=== PATIENT | male | born 1940 | race Caucasian/White ===

== ENCOUNTER 2022-09-05 12:13 | Outpatient (CLI) | payer MEDICARE, BC, SELFPAY | END 2022-09-05 12:14 | disposition home or self-care (01) | LOC: NFLDUCREF 09-08 10:07 | PROVIDERS: PCP Family Medicine; Visit Provider Registered Nurse | DX: R68.83 Chills (without fever) (principal); R35.0 Frequency of micturition; N39.0 Urinary tract infection, site not specified | CPT/HCPCS: 87086; 87186 ==

== ENCOUNTER 2023-05-15 13:50 | Outpatient (CLI) | payer MEDICARE, BC, SELFPAY | END 2023-05-15 13:51 | disposition home or self-care (01) | LOC: RAD 13:52 | PROVIDERS: PCP Family Medicine; Visit Provider Family Medicine | DX: I05.0 Rheumatic mitral stenosis (principal) | CPT/HCPCS: 93306 ==

== ENCOUNTER 2024-03-25 06:36 | Outpatient (CLI) | payer MEDICARE, BC, SELFPAY ==
--- NOTE | 2024-03-25 08:04 | W.ANESCHARGE ---
Anesthesia Charges Start Date/Time Anesthesia Start Date: 03/25/24 Anesthesia Start Time: 07:25 Stop Date/Time Anesthesia Stop Date: 03/25/24 Anesthesia Stop Time: 08:02
--- NOTE | 2024-03-25 08:52 | W.ANESCHARGE ---
Anesthesia Charges Start Date/Time Anesthesia Start Date: 03/25/24 Anesthesia Start Time: 07:25 Stop Date/Time Anesthesia Stop Date: 03/25/24 Anesthesia Stop Time: 08:02 Summary Extremes of Age - Over 70 or under 1: MDA
== END 2024-03-25 06:37 | disposition home or self-care (01) ==
LOC: OP CLINIC 06:37
PROVIDERS: PCP Family Medicine; Visit Provider Internal Medicine Gastroenterology
DX: Z12.11 Encounter for screening for malignant neoplasm of colon (principal); K57.30 Diverticulosis of large intestine without perforation or abscess without bleeding; Q43.8 Other specified congenital malformations of intestine; Z86.010 Personal history of colon polyps
CPT/HCPCS: 00812; 45378; 99100; J2704

== ENCOUNTER 2024-04-25 13:00 | Outpatient (RCR) | payer MEDICARE, BC, SELFPAY | END 2024-07-24 15:40 | disposition home or self-care (01) | PROVIDERS: PCP Family Medicine; Visit Provider Podiatrist | DX: R53.1 Weakness (principal); Z51.89 Encounter for other specified aftercare | CPT/HCPCS: 97110; 97161 ==

== ENCOUNTER 2024-05-13 08:53 | Emergency (ER) | payer MEDICARE, BC, SELFPAY ==
[2024-05-13 08:59] VITALS: BP 147/92; PULSE 64; RESP 18; TEMP 36.2; O2SAT 93; BMI 35.8
--- NOTE | 2024-05-13 09:12 | CRLHL7_ITS ---
For Patients: As a result of the Century Cures Act, medical imaging exams and procedure reports are released immediately into your electronic medical record. You may view this report before your referring provider. If you have questions, please contact your health care provider. INDICATION: Pain in front of chest. Trauma. COMPARISON: None TECHNIQUE: A single view of the chest was obtained as well as additional views of both rib cages. FINDINGS: Heart size normal. Tortuous aorta. Moderate to large hiatal hernia. Evidence of remote granulomatous infection. Linear and reticular bibasilar opacities are probably due to atelectasis and scarring. No pleural effusion or pneumothorax. I see no rib fracture. Due to demineralization, I would expect rib fractures, especially anterior rib fractures to be in apparent unless they were significantly displaced. Also note that the sternum is not studied on this exam. IMPRESSION: 1. No evidence of active pulmonary disease. Bibasilar atelectasis or scarring. No pleural effusion or pneumothorax. 2. No definite displaced rib fracture. Please review the comment regarding the ribs and the sternum. Dictated by Lucio Peters MD @ 05/13/2024 9:51:07 AM (Electronically Signed)
--- NOTE | 2024-05-13 09:12 | ED.FALL ---
HPI - Fall General Chief Complaint: Fall/Minor Trauma Stated Complaint: Fell on 05/10, sore all over Time Seen by Provider: 05/13/24 09:06 History of Present Illness HPI Narrative: This 84-year-old male comes in with lower anterior rib pain. He states that he fell 3 days ago and injured this area. He was walking and tripped over a speed bump on the road and fell forward. He did hit his face but did not have loss of consciousness. His main impact was on his lower anterior ribs. He states that he had rather distinct pain at the time and yet did not come in for evaluation. He reports that the pain is worse with a deep breath and when firing his abdominal musculature. He feels pain across the lower anterior chest. He states that his pain is improved over these past few days. He does take a baby aspirin. He does not report any headache or neurologic deficit. He mention to a neighbor who is a nurse about his symptoms and she states that he should have come in for evaluation. Related Data Home Medications ?Medication ?Instructions ?Recorded ?Confirmed amlodipine 10 mg tablet 10 mg PO QDAY 09/05/22 05/13/24 amoxicillin 500 mg capsule 2,000 mg PO ONCE PRN 09/05/22 09/05/22 brimonidine 0.2 % eye drops ml ophthalmic (eye) 09/05/22 09/05/22 famotidine 20 mg tablet 20 mg PO QDAY 09/05/22 05/13/24 hydrochlorothiazide 25 mg tablet 25 mg PO QDAY 09/05/22 05/13/24 simvastatin 20 mg tablet 20 mg PO QDAY 09/05/22 05/13/24 umeclidinium 62.5 mcg/actuation 1 inh inhalation Q24H 09/05/22 05/13/24 blister powder for inhalation (Incruse Ellipta) venlafaxine 37.5 mg See Rx Instructions PO .COMPLEX 09/05/22 05/13/24 capsule,extended release 24 hr losartan 50 mg tablet 50 mg PO DAILY 05/13/24 05/13/24 venlafaxine 75 mg capsule,extended 75 mg PO DAILY 05/13/24 05/13/24 release 24 hr Allergies Allergy/AdvReac Type Severity Reaction Status Date / Time atenolol Allergy bradycardia Verified 05/13/24 09:04 buspirone [From BuSpar] Allergy Diarrhea Verified 05/13/24 09:04 citalopram Allergy Diarrhea Verified 05/13/24 09:04 doxazosin Allergy Dizziness Verified 05/13/24 09:04 rosuvastatin Allergy myalgia Verified 05/13/24 09:04 sertraline Allergy Diarrhea Verified 05/13/24 09:04 simvastatin Allergy myalgia Verified 05/13/24 09:04 iodine contrast dye Allergy Severe swelling Uncoded 09/05/22 12:09 of throat Diatrizoate Allergy Anaphylaxis Uncoded 03/25/24 07:43 Review of Systems Status of ROS: Reports: 10 or more systems reviewed and unremarkable except as noted in History and below Narrative: Constitutional: No fevers, no weight gain or loss. Eyes: No discharge. No vision changes. HENT: No congestion, no sore throat, no ear pain. Cardiovascular: No palpitations. Respiratory: No shortness of breath, no wheezes, no cough. Gastrointestinal: No abdominal pain, no vomiting, no diarrhea. Genitourinary: No dysuria, no hematuria. Musculoskeletal: Normal range of motion. Skin: No rashes, no pruritis. Neurological: No dizziness, weakness, sensory change, speech change. Endo/Heme/Allergies: No bruising or bleeding. No polydipsia. Pysch: no suicidality, no anxiety, no insomnia. All other systems reviewed and are negative. PFSH PFSH Social History Smoking Status: Former smoker Do you use any of these nicotine containing products: None Second hand tobacco smoke exposure: No How often do you have a drink containing alcohol: 2-3 times a week How many standard drinks containing alcohol do you have on a typical day: 1 or 2 How often do you have six or more drinks on one occasion: Never AUDIT-C Alcohol total score: 3 Non-prescribed substance use: denies use Exam Narrative: Exam Narrative: Constitutional: Well-developed, well-nourished, no acute distress. HEENT: Normocephalic, atraumatic. Neck: Normal range of motion. Nontender. Supple. Heart: Regular. No murmurs. Normal rate. Intact distal pulses. Lungs: Clear to auscultation. No wheezes, rhonchi, or rales. Chest wall: Patient has distinct pain that is reproduced when palpating along the anterior lower ribs. Abdomen: Normal bowel sounds. Nontender. No rebound tenderness. Genitalia: Deferred. Back: No midline tenderness. Normal range of motion. Extremities: Normal range of motion. No injury. Skin: Intact. No rash. Warm. No erythema or pallor. Neurologic: No altered sensation. No weakness. Alert and oriented. Psychiatric: No suicidality. No anxiety or depression. No insomnia. Nursing notes and vitals signs are reviewed. Const: Vital Signs, click to edit/add: Vital Signs - 24 hr 05/13/24 08:59 Temperature 97.2 F L Pulse Rate [Right Pulse Oximeter] 64 Respiratory Rate 18 Blood Pressure [Ri ght Upper Arm] 147/92 H Pulse Oximetry 93 Oxygen Delivery Me thod Room Air Course Vital Signs Vital signs: Initial Vital Signs Temperature 97.2 F L 05/13/24 08:59 Temperature Source Temporal Artery Scan 05/13/24 08:59 Pulse Rate 64 05/13/24 08:59 Pulse Rhythm Regular 05/13/24 08:59 Pulse Strength 3+ Normal 05/13/24 08:59 Respiratory Rate 18 05/13/24 08:59 Blood Pressure 147/92 H 05/13/24 08:59 Blood Pressure Mean 110 H 05/13/24 08:59 Blood Pressure Position Sitting 05/13/24 08:59 Pulse Oximetry 93 05/13/24 08:59 Oxygen Delivery Method Room Air 05/13/24 08:59 Vital Signs Temperature 97.2 F L 05/13/24 08:59 Pulse Rate 64 05/13/24 08:59 Respiratory Rate 18 05/13/24 08:59 Blood Pressure 147/92 H 05/13/24 08:59 Pulse Oximetry 93 05/13/24 08:59 Oxygen Delivery Method Room Air 05/13/24 08:59 Temperature 97.2 F L 05/13/24 08:59 Pulse Rate 64 05/13/24 08:59 Respiratory Rate 18 05/13/24 08:59 Blood Pressure 147/92 H 05/13/24 08:59 Pulse Oximetry 93 05/13/24 08:59 Oxygen Delivery Method Room Air 05/13/24 08:59 MDM - Fall MDM Narrative Medical decision making narrative: This patient comes in for evaluation of injuries from a fall as described above. X-ray images are obtained which show no evidence of pneumothorax or rib fracture. The patient is reassured with these results. He states that he feels okay using [id number] medicines for pain relief as needed. Discharge Plan Discharge Clinical Impression: Contusion of ribs Patient Disposition: Home, Self-Care Condition: Stable Additional Instructions: Use [id number] medicines as needed and directed. Increase activity as tolerated. Follow up with MD or return if worsening. Prescriptions: No Action amlodipine 10 mg tablet 10 mg PO QDAY famotidine 20 mg tablet 20 mg PO QDAY amoxicillin 500 mg capsule 2,000 mg PO ONCE PRN Patient Comments: TK FOUR CS PO 1 HOUR B DAPP venlafaxine 37.5 mg capsule,extended release 24hr See Rx Instructions PO .COMPLEX Rx Instructions: orally; hydrochlorothiazide 25 mg tablet 25 mg PO QDAY simvastatin 20 mg tablet 20 mg PO QDAY brimonidine 0.2 % drops ophthalmic (eye) Hold Instructions: Doctor's Order Patient Comments: INSTILL 1 DROP TO SURGICAL EYE TWICE DAILY FOR 7 DAYS Incruse Ellipta 62.5 mcg/actuation blister with device 1 inh inhalation Q24H losartan 50 mg tablet 50 mg PO DAILY venlafaxine 75 mg capsule,extended release 24hr 75 mg PO DAILY Follow Up/Referrals: Anthony Coleman MD [Primary Care Provider] - Stand Alone Forms: [employer] Info Instructions
== END 2024-05-13 10:41 | disposition home or self-care (01) ==
PROVIDERS: Emergency Provider Emergency Medicine Emergency Medical Services; PCP Family Medicine
DX: S20.219A Contusion of unspecified front wall of thorax, initial encounter (principal); W01.0XXA Fall on same level from slipping, tripping and stumbling without subsequent striking against object, initial encounter
CPT/HCPCS: 71110; 99283; 99284

== ENCOUNTER 2024-07-11 11:20 | Emergency (ER) | payer MEDICARE, BC, SELFPAY ==
[2024-07-11 11:25] VITALS: BP 130/82; PULSE 60; RESP 18; TEMP 36.8; O2SAT 93; BMI 35.3
--- NOTE | 2024-07-11 11:31 | CRLHL7_ITS ---
For Patients: As a result of the Century Cures Act, medical imaging exams and procedure reports are released immediately into your electronic medical record. You may view this report before your referring provider. If you have questions, please contact your health care provider. INDICATION: Fall, left rib pain, bruising TECHNIQUE: CT chest without contrast. COMPARISON: None. FINDINGS: Supraclavicular: Unremarkable. Lungs and pleura: Calcified granuloma in the lingula. Upper lobe predominant centrilobular emphysema. Atelectasis/scarring in the lung bases. Heart and vasculature: Coronary artery calcifications. Aortic annular calcification. Calcified mediastinal lymph nodes, likely related to prior granulomatous disease. Lymph nodes/mediastinum: No mediastinal, hilar, or axillary adenopathy. Chest wall: Mild soft tissue swelling along the left chest wall. Upper abdomen: Moderate hiatal hernia. Calcified granulomas throughout the spleen. Right renal cyst. Partially visualized ventral hernia containing a colonic loop with narrow neck measuring 1.5 centimeters. No evidence of obstruction. Bones: No acute abnormalities. Old bilateral anterior rib fractures. Sclerotic lesions in T6 and T8 are indeterminate, but are well-defined, favoring bone islands. IMPRESSION: Mild soft tissue swelling along the left chest wall without acute fracture. Please note that all CT scans at this facility use dose modulation, iterative reconstruction, and/or weight-based dosing when appropriate to reduce radiation dose to as low as reasonably achievable. Dictated by Alisha Hensley MD @ 07/11/2024 1:27:26 PM (Electronically Signed)
--- NOTE | 2024-07-11 13:32 | ED_ITS ---
HPI - Fall General Date Seen: 07/11/24 Chief Complaint: Fall/Minor Trauma Stated Complaint: Fell Monday, rib pain Time Seen by Provider: 07/11/24 11:21 Source: patient Mode of arrival: ambulatory Limitations: no limitations History of Present Illness HPI Narrative: Patient is an 84-year-old male with left lower anterior rib pain/left upper quadrant abdominal pain. He states 3 days ago he was carrying a bucket up the stairs when he tripped and fell falling forward and hitting his chest on the bucket. He is concerned he broke a rib as pain is not improving. He does have pain with inspiration but otherwise able to complete all normal activities. Took Tylenol for few days other fall with minimal improvement. He is traveling I would this week and so he want to get checked out before he goes. Denies any lightheadedness, dizziness, weakness, numbness, headache, vision changes, diarrhea, constipation. No other concerns noted at this time. Related Data Home Medications ?Medication ?Instructions ?Recorded ?Confirmed amlodipine 10 mg tablet 10 mg PO QDAY 09/05/22 07/11/24 amoxicillin 500 mg capsule 2,000 mg PO ONCE PRN 09/05/22 07/11/24 brimonidine 0.2 % eye drops ml ophthalmic (eye) 09/05/22 09/05/22 famotidine 20 mg tablet 20 mg PO QDAY 09/05/22 07/11/24 hydrochlorothiazide 25 mg tablet 25 mg PO QDAY 09/05/22 07/11/24 simvastatin 20 mg tablet 20 mg PO QDAY 09/05/22 07/11/24 umeclidinium 62.5 mcg/actuation 1 inh inhalation Q24H 09/05/22 07/11/24 blister powder for inhalation (Incruse Ellipta) venlafaxine 37.5 mg See Rx Instructions PO .COMPLEX 09/05/22 07/11/24 capsule,extended release 24 hr losartan 50 mg tablet 50 mg PO DAILY 05/13/24 07/11/24 venlafaxine 75 mg capsule,extended 75 mg PO DAILY 05/13/24 07/11/24 release 24 hr Allergies Allergy/AdvReac Type Severity Reaction Status Date / Time atenolol Allergy bradycardia Verified 07/11/24 11:29 buspirone [From BuSpar] Allergy Diarrhea Verified 07/11/24 11:29 citalopram Allergy Diarrhea Verified 07/11/24 11:29 doxazosin Allergy Dizziness Verified 07/11/24 11:29 rosuvastatin Allergy myalgia Verified 07/11/24 11:29 sertraline Allergy Diarrhea Verified 07/11/24 11:29 simvastatin Allergy myalgia Verified 07/11/24 11:29 iodine contrast dye Allergy Severe swelling Uncoded 09/05/22 12:09 of throat Diatrizoate Allergy Anaphylaxis Uncoded 03/25/24 07:43 Review of Systems Status of ROS: Reports: 10 or more systems reviewed and unremarkable except as noted in History and below [facility] Social History Smoking Status: Former smoker Do you use any of these nicotine containing products: None Second hand tobacco smoke exposure: No How often do you have a drink containing alcohol: 2-3 times a week How many standard drinks containing alcohol do you have on a typical day: 1 or 2 How often do you have six or more drinks on one occasion: Never AUDIT-C Alcohol total score: 3 Non-prescribed substance use: denies use Exam Narrative: Exam Narrative: Const: Well-nourished, Well-developed, in mild distress Eyes: PERRL, no conjunctival injection, and symmetrical lids HENT: Atraumatic external nose and ears. Moist mucous membranes. Neck: Symmetric, trachea midline, No thyromegaly. CVS: RRR, No murmurs or gallops. Peripheral pulses 2+ and equal in all extremities RESP: Unlabored respiratory effort. Clear to auscultation bilaterally. GI: Left upper quadrant tenderness, Nondistended, No rebound or guarding. MSK:Extremities w/o deformity, Normal Active ROM, bruising and tenderness noted to left lower anterior ribs around rib 10 Skin: Warm, Dry. No rashes or lesions. Neuro: Normal Muscle tone, No focal neurological deficits. Psych: Awake, Alert, & Oriented x3. Appropriate mood and affect. Const: Vital Signs, click to edit/add: Vital Signs - 24 hr 07/11/24 11:25 Temperature 98.2 F Pulse Rate [Pulse Oximeter] 60 Respiratory Rate 18 Blood Pressure [Ri ght Upper Arm] 130/82 Pulse Oximetry 93 Oxygen Delivery Me thod Room Air Course Vital Signs Vital signs: Initial Vital Signs Temperature 98.2 F 07/11/24 11:25 Temperature Source Temporal Artery Scan 07/11/24 11:25 Pulse Rate 60 07/11/24 11:25 Respiratory Rate 18 07/11/24 11:25 Blood Pressure 130/82 07/11/24 11:25 Blood Pressure Mean 98 07/11/24 11:25 Blood Pressure Position Sitting 07/11/24 11:25 Pulse Oximetry 93 07/11/24 11:25 Oxygen Delivery Method Room Air 07/11/24 11:25 Vital Signs Temperature 98.2 F 07/11/24 11:25 Pulse Rate 60 07/11/24 11:25 Respiratory Rate 18 07/11/24 11:25 Blood Pressure 130/82 07/11/24 11:25 Pulse Oximetry 93 07/11/24 11:25 Oxygen Delivery Method Room Air 07/11/24 11:25 Temperature 98.2 F 07/11/24 11:25 Pulse Rate 60 07/11/24 11:25 Respiratory Rate 18 07/11/24 11:25 Blood Pressure 130/82 07/11/24 11:25 Pulse Oximetry 93 07/11/24 11:25 Oxygen Delivery Method Room Air 07/11/24 11:25 MDM - Fall MDM Narrative Medical decision making narrative: Patient is an 82-year-old male presenting to emergency department for left-sided rib pain. On my exam he is also tender right underneath the ribs to the left lower quadrant. While this all could be bruising I do want to make sure he does not have any internal injuries. Chest CT was ordered initially in triage due to the long wait and his initial complaint but I would now also added on a CT with IV contrast to rule out any solid organ injury. Since he is get any lab work for this will do a CBC and BMP. He is allergic to IV contrast and states his throat swells up but does do well when he is premedicated. Benadryl and Solu- Cortef ordered per protocol. The I do not believe EKG or troponins are n ecessary as this was mechanical fall any hit his left lower ribs and not his sternum. Patient's labs showed no concerning abnormalities. It was a busy emergency department and the wait for the CT scan was longer than the patient wanted and you want to be discharged. He states he is feeling fine and is feeling safe to go home. I cannot definitively rule out any solid organ damage but considering his vital signs are stable and no signs of any acute rib fractures I do feel comfortable discharging him home but I did inform him he needs to return immediately for any concerning symptoms such as lightheadedness, worsening abdominal pain or any other concerning findings. He states he understands. Lab Data Labs: Lab Results 07/11/24 07/11/24 Range/Units 13:21 13:45 WBC 7.06 (4.50-11.00) K/uL RBC 5.15 (4.30-5.90) m/uL Hgb 14.0 (13.5-17.5) gm/dL Hct 43.8 (37.0-53.0) % MCV 85 (80-100) fL MCH 27 (26-34) pg MCHC 32 (32-36) gm/dL RDW Coeff of Amrgaux 16.2 H (11.5-15.5) % Plt Count 278 (140-440) K/uL Neut % (Auto) 57.5 (42.0-72.0) % Lymph % (Auto) 26.6 (20-44) % [place] % (Auto) 10.3 (0.0-11.0) % Eos % (Auto) 4.8 (0.0-7.0) % Baso % (Auto) 0.7 (0.0-3.0) % Neut # (Auto) 4.05 (1.7-7.0) K/uL Lymph # (Auto) 1.88 (0.90-2.90) K/uL [place] # (Auto) 0.70 (0.00-0.90) K/UL Eos # (Auto) 0.34 (0.00-0.50) K/uL Baso # (Auto) 0.05 (0.00-0.30) K/uL Abs Immat Gran (auto) 0.01 (0.00-0.30) K/uL Imm/Tot Granulo (auto) 0.1 % Sodium 138 (135-149) mmol/L Potassium 4.0 (3.6-5.1) mmol/L Chloride 103 (96-114) mmol/L Carbon Dioxide 26 (20-32) mmol/L Anion Gap 9 (7-15) mEq/L BUN 12 (7-30) mg/dL Creatinine 1.2 (0.5-1.5) mg/dL Estimated Creat Clear 50.55 Estimated GFR 60 ml/min Glucose 96 (60-115) mg/dL Calcium 9.7 (8.4-10.6) mg/dL POC Creatinine 1.4 H (0.6-1.3) mg/dl Imaging Data CT scan chest: Attestation: I have reviewed the pertinent imaging results. Radiologist's impression: Mild soft tissue swelling along the left chest wall without acute fracture. Please note that all CT scans at this facility use dose modulation, iterative reconstruction, and/or weight-based dosing when appropriate to reduce radiation dose to as low as reasonably achievable. Dictated by Alisha Hensley MD @ 07/11/2024 1:27:26 PM Discharge Plan Discharge Clinical Impression: Contusion of rib Qualifiers: Encounter type: initial encounter Laterality: left Qualified Code(s): S20.212A - Contusion of left front wall of thorax, initial encounter Patient Disposition: Home, Self-Care Condition: Stable Instructions: Rib Contusion (ED) Additional Instructions: At this time I cannot definitively rule out any solid organ injury sore if you develop any worsening abdominal pain, lightheadedness or any other concerning symptoms at all return to the emergency department immediately for re- evaluation. Prescriptions: No Action amlodipine 10 mg tablet 10 mg PO QDAY famotidine 20 mg tablet 20 mg PO QDAY amoxicillin 500 mg capsule 2,000 mg PO ONCE PRN Patient Comments: TK FOUR CS PO 1 HOUR B DAPP venlafaxine 37.5 mg capsule,extended release 24hr See Rx Instructions PO .COMPLEX Rx Instructions: orally; hydrochlorothiazide 25 mg tablet 25 mg PO QDAY simvastatin 20 mg tablet 20 mg PO QDAY brimonidine 0.2 % drops ophthalmic (eye) Hold Instructions: Doctor's Order Patient Comments: INSTILL 1 DROP TO SURGICAL EYE TWICE DAILY FOR 7 DAYS Incruse Ellipta 62.5 mcg/actuation blister with device 1 inh inhalation Q24H losartan 50 mg tablet 50 mg PO DAILY venlafaxine 75 mg capsule,extended release 24hr 75 mg PO DAILY Follow Up/Referrals: Anthony Coleman MD [Primary Care Provider] - Stand Alone Forms: [facility] Info Instructions
[2024-07-11 13:56] LABS: Creatinine, Point-of-Care* 1.4 mg/dl (0.6-1.3)
[2024-07-11 13:58] LABS: Basophils Absolute Auto 0.05 K/uL (0.00-0.30); Basophils Percent Auto 0.7 % (0.0-3.0); Eosinophils Absolute Auto 0.34 K/uL (0.00-0.50); Eosinophils Percent Auto 4.8 % (0.0-7.0); Hematocrit 43.8 % (37.0-53.0); Immature Granulocytes Abs Auto 0.01 K/uL (0.00-0.30); Immature Granulocytes Pct Auto 0.1 %; Lymphocytes Absolute Auto 1.88 K/uL (0.90-2.90); Lymphocytes Percent Auto 26.6 % (20-44); Mean Corpuscular HGB Conc 32 gm/dL (32-36); Mean Corpuscular Hemoglobin 27 pg (26-34); Mean Corpuscular Volume 85 fL (80-100); Monocytes Percent Auto 10.3 % (0.0-11.0); Neutrophils Absolute Auto 4.05 K/uL (1.7-7.0); Neutrophils Percent Auto 57.5 % (42.0-72.0); Platelet Count* 278 K/uL (140-440); RDW Coefficient of Variation % 16.2 % (11.5-15.5); Red Blood Count 5.15 m/uL (4.30-5.90); White Blood Count* 7.06 K/uL (4.50-11.00)
[2024-07-11 14:09] LABS: Chloride* 103 mmol/L (96-114); Sodium* 138 mmol/L (135-149)
[2024-07-11 14:10] LABS: Slide Review Reflex No
[2024-07-11 14:12] LABS: Anion Gap 9 mEq/L (7-15); Blood Urea Nitrogen* 12 mg/dL (7-30); Calcium* 9.7 mg/dL (8.4-10.6); Carbon Dioxide* 26 mmol/L (20-32); Creatinine* 1.2 mg/dL (0.5-1.5); Est. Creatinine Clearance* 50.55; Estimated Glomerular Filt Rate 60 ml/min; Glucose* 96 mg/dL (60-115)
== END 2024-07-11 15:10 | disposition home or self-care (01) ==
PROVIDERS: Emergency Provider Student in an Organized Health Care Education/Training Program; PCP Family Medicine
DX: S20.212A Contusion of left front wall of thorax, initial encounter (principal); W10.9XXA Fall (on) (from) unspecified stairs and steps, initial encounter
CPT/HCPCS: 36415; 71250; 80048; 82565; 85025; 99283

== ENCOUNTER 2024-07-12 10:49 | Emergency (ER) | payer MEDICARE, BC, SELFPAY ==
[2024-07-12 10:54] VITALS: BP 156/82; PULSE 74; RESP 20; TEMP 36.3; O2SAT 93
--- NOTE | 2024-07-12 11:15 | ED.GENADULT ---
HPI - General Adult General Date Seen: 07/12/24 Chief complaint: Chest Pain Stated complaint: Fall, chest pain Time Seen by Provider: 07/12/24 11:00 Source: patient, RN notes reviewed and old records reviewed Mode of arrival: ambulatory Limitations: no limitations History of Present Illness HPI narrative: Patient is an 84-year-old male here with his . He was in the ER yesterday after having sustained a fall and hitting his left chest on a plastic bucket 5 days ago. Apparently the ER was busy yesterday, he had had a CT scan without contrast while in triage which was normal did not show rib fracture or pneumothorax, visualized upper abdomen was normal. He does have a contrast allergy, there was conversation about doing a CT with contrast, but after waiting for a couple of hours he decided he did not want to wait further and left. He did have labs drawn and had hemoglobin of 14 yesterday. He is not anticoagulated. He notes pain in the left chest which he is quite clear started after this fall, he has tenderness to palpation although he does not have any bruising visible. He has not had shortness of breath but he does have pain with deep breath, and with movement. He has not been taking anything for pain at home, his has tried to convince him to try some Tylenol but thus far has not taken anything. He says that they happen to be in town today at the grocery store, he was trying to look up the read for the CT scan that he had yesterday because he says he never got results of that, was unable to pull it up on his computer and decided they were so close to the hospital tonight as well just come in and see if they should finish what was recommended yesterday. He does not have any new symptoms, no new injuries. Related Data Home Medications ?Medication ?Instructions ?Recorded ?Confirmed amlodipine 10 mg tablet 10 mg PO QDAY 09/05/22 07/11/24 amoxicillin 500 mg capsule 2,000 mg PO ONCE PRN 09/05/22 07/11/24 brimonidine 0.2 % eye drops ml ophthalmic (eye) 09/05/22 09/05/22 famotidine 20 mg tablet 20 mg PO QDAY 09/05/22 07/11/24 hydrochlorothiazide 25 mg tablet 25 mg PO QDAY 09/05/22 07/11/24 simvastatin 20 mg tablet 20 mg PO QDAY 09/05/22 07/11/24 umeclidinium 62.5 mcg/actuation 1 inh inhalation Q24H 09/05/22 07/11/24 blister powder for inhalation (Incruse Ellipta) venlafaxine 37.5 mg See Rx Instructions PO .COMPLEX 09/05/22 07/11/24 capsule,extended release 24 hr losartan 50 mg tablet 50 mg PO DAILY 05/13/24 07/11/24 venlafaxine 75 mg capsule,extended 75 mg PO DAILY 05/13/24 07/11/24 release 24 hr Allergies Allergy/AdvReac Type Severity Reaction Status Date / Time atenolol Allergy bradycardia Verified 07/11/24 11:29 buspirone [From BuSpar] Allergy Diarrhea Verified 07/11/24 11:29 citalopram Allergy Diarrhea Verified 07/11/24 11:29 doxazosin Allergy Dizziness Verified 07/11/24 11:29 rosuvastatin Allergy myalgia Verified 07/11/24 11:29 sertraline Allergy Diarrhea Verified 07/11/24 11:29 simvastatin Allergy myalgia Verified 07/11/24 11:29 iodine contrast dye Allergy Severe swelling Uncoded 09/05/22 12:09 of throat Diatrizoate Allergy Anaphylaxis Uncoded 03/25/24 07:43 Review of Systems Status of ROS: Reports: 6 or more systems reviewed and unremarkable except as noted in History and below [facility] Social History Smoking Status: Former smoker Do you use any of these nicotine containing products: None Second hand tobacco smoke exposure: No How often do you have a drink containing alcohol: 2-3 times a week How many standard drinks containing alcohol do you have on a typical day: 1 or 2 How often do you have six or more drinks on one occasion: Never AUDIT-C Alcohol total score: 3 Non-prescribed substance use: denies use Exam Narrative: Exam Narrative: Vital signs reviewed In general, alert, well-appearing elderly male, breathing easily. Head: Normocephalic, atraumatic. ENT: No facial trauma Neck: Nontender to palpation. Heart: Regular rate and rhythm without murmur. Lungs: Clear, breath sounds equal. Chest wall tenderness on the left side without crepitus or can subQ air. Abdomen: Soft, nontender to palpation. Skin: Warm and dry, no significant bruising or hematoma. Const: Vital Signs, click to edit/add: Vital Signs - 24 hr 07/12/24 10:54 Temperature 97.3 F L Pulse Rate [Pulse Oximeter] 74 Respiratory Rate 20 Blood Pressure [Le ft Upper Arm] 156/82 H Pulse Oximetry 93 Oxygen Delivery Me thod Room Air Documenting provider has reviewed patient's vital signs: yes Course Course ED Course: Had a lengthy conversation with the patient and his . I reviewed his records, CT scan albeit without contrast yesterday was unremarkable. He is 5 days out from this injury, hemoglobin is normal, he is not anticoagulated, and I am not sure there is a lot to be gained from a CT scan with contrast at this time. Reviewed with him that I am certainly happy to do that if he would feel more comfortable but I do think that if he had a significant solid organ injury that needed intervention at this time we would be seeing some signs of it. He would prefer not to do additional testing if not absolutely necessary, so I think it is reasonable to forego that. Did talk about pain control, ice may still be helpful and I would certainly recommend that at a minimum he take Tylenol 3 times daily. I am giving him oxycodone, 4 tablets from [facility] and he can use 1/2-1 full tab if needed for more severe pain over the next couple of days. I would anticipate these symptoms should improve over the next couple few weeks, if not follow up with primary care. Return at any time for severe or worsening symptoms. He is comfortable with that plan. Vital Signs Vital signs: Initial Vital Signs Temperature 97.3 F L 07/12/24 10:54 Temperature Source Temporal Artery Scan 07/12/24 10:54 Pulse Rate 74 07/12/24 10:54 Respiratory Rate 20 07/12/24 10:54 Blood Pressure 156/82 H 07/12/24 10:54 Blood Pressure Mean 106 H 07/12/24 10:54 Blood Pressure Position Supine 07/12/24 10:54 Pulse Oximetry 93 07/12/24 10:54 Oxygen Delivery Method Room Air 07/12/24 10:54 Vital Signs Temperature 97.3 F L 07/12/24 10:54 Pulse Rate 74 07/12/24 10:54 Respiratory Rate 20 07/12/24 10:54 Blood Pressure 156/82 H 07/12/24 10:54 Pulse Oximetry 93 07/12/24 10:54 Oxygen Delivery Method Room Air 07/12/24 10:54 Temperature 97.3 F L 07/12/24 10:54 Pulse Rate 74 07/12/24 10:54 Respiratory Rate 20 07/12/24 10:54 Blood Pressure 156/82 H 07/12/24 10:54 Pulse Oximetry 93 07/12/24 10:54 Oxygen Delivery Method Room Air 07/12/24 10:54 Discharge Plan Discharge Clinical Impression: Contusion of rib Patient Disposition: Home, Self-Care Condition: Stable Instructions: Rib Contusion (ED) Additional Instructions: Tylenol 1000 mg 3 times daily for the next few days to week. Ice if needed. Oxycodone 1/2-1 tab if needed for more severe pain, be aware this can cause dizziness, sleepiness, constipation, is habit-forming. Use only if needed. See primary doctor if not gradually improving over the next 2-3 weeks. Return at any time for acute worsening. Prescriptions: No Action amlodipine 10 mg tablet 10 mg PO QDAY famotidine 20 mg tablet 20 mg PO QDAY amoxicillin 500 mg capsule 2,000 mg PO ONCE PRN Patient Comments: TK FOUR CS PO 1 HOUR B DAPP venlafaxine 37.5 mg capsule,extended release 24hr See Rx Instructions PO .COMPLEX Rx Instructions: orally; hydrochlorothiazide 25 mg tablet 25 mg PO QDAY simvastatin 20 mg tablet 20 mg PO QDAY brimonidine 0.2 % drops ophthalmic (eye) Hold Instructions: Doctor's Order Patient Comments: INSTILL 1 DROP TO SURGICAL EYE TWICE DAILY FOR 7 DAYS Incruse Ellipta 62.5 mcg/actuation blister with device 1 inh inhalation Q24H losartan 50 mg tablet 50 mg PO DAILY venlafaxine 75 mg capsule,extended release 24hr 75 mg PO DAILY Follow Up/Referrals: Anthony Coleman MD [Primary Care Provider] - Stand [facility]one [facility] Inst[facility]
== END 2024-07-12 11:27 | disposition home or self-care (01) ==
LOC: ED 11:16
PROVIDERS: Emergency Provider Emergency Medicine; PCP Family Medicine
DX: S20.212A Contusion of left front wall of thorax, initial encounter (principal); W19.XXXA Unspecified fall, initial encounter
CPT/HCPCS: 99283